=== PATIENT | female | born 2000 | race Caucasian/White ===

== ENCOUNTER 2021-10-12 16:18 | Emergency (ER) | payer OTHER, BC, SELFPAY ==
--- NOTE | 2021-10-12 16:32 | ED.WOUNDLAC ---
HPI - Wound/Laceration General Chief Complaint: Wound/Laceration Stated Complaint: WC, ring finger injury Time Seen by Provider: 10/12/21 16:32 Source: patient Mode of arrival: ambulatory Limitations: no limitations History of Present Illness HPI narrative: 21-year-old female presents with superficial laceration to right ring finger. 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 States normally she wears her gloves just happened to not put them off today. Unsure of last tetanus. States she was concerned that she may need sutures. Reports that she could not get wound to stop bleeding. Arrived with no active bleeding. Distal neurovascularly intact. All systems reviewed and negative except as noted above. Related Data Home Medications Medication Instructions Recorded Confirmed Concerta 10/12/21 Lexapro 10/12/21 Allergies Allergy/AdvReac Type Severity Reaction Status Date / Time clindamycin Allergy Unknown Verified 08/12/15 17:55 ofloxacin Allergy Unknown Verified 08/12/15 17:55 sulfamethoxazole Allergy Unknown Verified 08/12/15 17:55 trimethoprim Allergy Unknown Verified 08/12/15 17:55 AMOXICILLIN TRIHYDRATE Allergy Unknown Uncoded 08/12/15 17:55 Review of Systems Review of Systems: CONSTITUTIONAL: Denies fever, chills, or sweats. EYES: Denies visual changes, redness, or discharge. ENT: Denies rhinorrhea, congestion, sore throat, or otalgia. CARDIOVASCULAR: Denies chest pain, palpitations, or edema. RESPIRATORY: Denies cough or dyspnea. GASTROINTESTINAL: Denies abdominal pain, nausea, vomiting, or diarrhea. GENITOURINARY: Denies dysuria or hematuria. SKIN: Denies rash or itching. Reports laceration to right ring finger. MUSCULOSKELETAL: Denies back pain, joint pain, or myalgia. NEUROLOGIC: Denies headache, numbness, or weakness. PSYCHIATRIC: Denies anxiety or depression. All other systems reviewed are negative, except as documented in HPI. PMFSH Comments At time of signature, agree with nursing past medical, surgical, social and family history. There is no relevant family history pertinent to the presenting complaint. Exam Narrative: GENERAL: This is a well-nourished, well-developed patient, in no apparent distress. HEAD: normocephalic, atraumatic. EYES: PERRL. Sclera clear/white. Vision is grossly intact. EARS: External ears normal THROAT: Mucous membranes moist NECK: Neck supple, non-tender without lymphadenopathy, masses or thyromegaly. CARDIOVASCULAR: Regular rate and rhythm without murmurs, gallops, or rubs. RESPIRATORY: Clear to auscultation. Breath sounds equal bilaterally. No wheezes, rales, or rhonchi. SKIN: warm, Dry, intact with no suspicious lesions or rash, good texture and turgor. 0.5 cm superficial laceration to right ring finger. Palmar aspect to pad of finger. NEURO: awake, alert, and oriented to person, place and time. There were no obvious focal neurologic abnormalities. EXTREMITIES: No joint tenderness, effusion, or edema noted. Course Course Level of Care: Express Care Visit Vital Signs Vital signs: Vital Signs Temperature 37.1 C 10/12/21 16:36 Pulse Rate 88 10/12/21 16:36 Respiratory Rate 16 10/12/21 16:36 Blood Pressure 138/97 H 10/12/21 16:36 Pulse Oximetry 100 10/12/21 16:36 Temperature 37.1 C 10/12/21 16:36 Pulse Rate 88 10/12/21 16:36 Respiratory Rate 16 10/12/21 16:36 Blood Pressure 138/97 H 10/12/21 16:36 Pulse Oximetry 100 10/12/21 16:36 reviewed MDM - Wound/Laceration MDM Narrative Medical decision making narrative: superficial laceration R ring finger. suture repair not indicated. no active bleeding at discharge. Patient is aware of diagnosis, understands and agrees to treatment plan. Anticipatory guidance given. Patient agrees to follow-up as directed and is aware of reasons to seek care at the emergency department. Portions of this record may have been c
[2021-10-12 16:36] VITALS: BP 138/97; PULSE 88; RESP 16; TEMP 37.1; O2SAT 100
[2021-10-12] MEDS: TETANUS,DIPHTHERIA,AC PERTUSSIS ADULT (0.5 ML) BOOSTRIX IM (16:55)
== END 2021-10-12 17:04 | disposition home or self-care (01) ==
PROVIDERS: Emergency Provider Nurse Practitioner Family
DX: S61.210A Laceration without foreign body of right index finger without damage to nail, initial encounter (principal); W45.8XXA Other foreign body or object entering through skin, initial encounter; Y99.0 Civilian activity done for income or pay; Z23 Encounter for immunization
CPT/HCPCS: 90471; 90715; 99212; G0463

== ENCOUNTER 2023-03-03 19:36 | Emergency (ER) | payer BC, SELFPAY ==
--- NOTE | 2023-03-03 19:37 | ED.URI ---
HPI - URI/Sore Throat General Chief Complaint: Upper Respiratory Infection Stated Complaint: FEVER/SINUS DRAINAGE/HEADACHE Time Seen by Provider: 03/03/23 19:36 Source: patient Mode of arrival: ambulatory Limitations: no limitations History of Present Illness HPI Narrative: Abby is a 22-year-old female patient presenting to the clinic today with complaints of fever, headache, sore throat, sinus drainage, and headache x1 day. She reports her fever has gotten worse throughout the day and is high as 101. Temperature in the clinic was 99.5F. Took an at home COVID test and was negative. MD elicited complaint: fever, sore throat, nasal congestion and other (Headache, sinus drainage) Related Data Home Medications Medication Instructions Recorded Confirmed bupropion HCl 300 mg 24 hr tablet, 300 mg PO DAILY 03/03/23 03/03/23 extended release escitalopram oxalate 20 mg tablet 20 mg PO DAILY 03/03/23 03/03/23 methylphenidate HCl 36 mg 36 mg PO DAILY 03/03/23 03/03/23 tablet,extended release 24 hr norethindrone 1 mg-ethinyl 1 tablet PO DAILY 03/03/23 03/03/23 estradiol 10 mcg (24)-iron 10 mcg(2) tablet (Lo Loestrin Fe) Allergies Allergy/AdvReac Type Severity Reaction Status Date / Time clindamycin Allergy Unknown Hives Verified 03/03/23 19:38 ofloxacin Allergy Unknown Other Verified 03/03/23 19:38 sulfamethoxazole Allergy Unknown Hives Verified 03/03/23 19:38 trimethoprim Allergy Unknown Hives Verified 03/03/23 19:38 AMOXICILLIN TRIHYDRATE Allergy Unknown Hives Uncoded 03/03/23 19:38 Review of Systems Review of Systems: Pertinent positives per HPI. Patient denies any rash, visual changes, dizziness, shortness of breath, chest pain, palpitations, nausea, vomiting, diarrhea, constipation, abdominal pain, or any urinary issues. PMFSH Comments At the time of my signature, I reviewed and agree with the nursing past medical, surgical, social, and family history. There is no relevant family history pertinent to the patient complaint. Exam Narrative: General: Well-developed, well nourished, in no apparent distress Head: Normocephalic, atraumatic Eyes: Pupils equally round and reactive to light bilaterally, EOM intact, sclera and conjunctive clear, no discharge, lids normal Ears: TMs intact and clear, ear canals clear, no drainage, grossly hearing normal. Nose: Nares patent, clear nasal discharge, no inflammation, no sinus tenderness. Mouth: Oral pharynx red without lesions or masses, good dentition, MMM. Neck: Supple, trachea midline, enlargement of anterior cervical nodes, no thyroid masses or goiter palpable. Cardio: Regular rate and rhythm, s1 and s2 normal, no murmur appreciated. Resp: Clear to auscultation bilaterally, no rhonchi, rales, wheezing or rubs Course Course Emergency Course: Portions of this record may have been created with voice recognition software. Level of Care: Express Care Visit Vital Signs Vital signs: Vital signs reviewed MDM - URI/Sore Throat MDM Narrative Medical decision making narrative: At the time of visit patient is resting comfortably on the exam table. Patient appears to be nontoxic. Strep and flu test were performed. Strep test was positive. Influenza testing was negative. Prescription for cefdinir was sent to the pharmacy. Supportive measures were discussed with the patient and they voiced understanding discharge instructions and agrees to treatment plan. Return precautions reviewed Differential Diagnosis Differential diagnosis: Likely upper respiratory infection, otitis media, sinusitis, viral infection, bronchitis, influenza, pharyngitis and other (COVID) Discharge Plan Discharge Clinical Impression: Acute streptococcal pharyngitis Upper respiratory infection Qualifiers: URI type: unspecified URI Qualified Code(s): J06.9 - Acute upper respiratory infection, unspecified Patient Disposition: Home, Self-Care Condition: Stable Instructions:
[2023-03-03 19:41] VITALS: BP 142/82; PULSE 98; RESP 16; TEMP 37.4; O2SAT 99
[2023-03-03 19:46] VITALS: BP 142/82; PULSE 98; RESP 16; TEMP 37.4; O2SAT 99
== END 2023-03-03 19:58 | disposition home or self-care (01) ==
PROVIDERS: Emergency Provider Nurse Practitioner Family
DX: J02.0 Streptococcal pharyngitis (principal)
CPT/HCPCS: 87804; 87880; 99213; G0463

== ENCOUNTER 2023-07-25 14:31 | Emergency (ER) | payer BC, SELFPAY ==
[2023-07-25 14:43] VITALS: BP 133/98; PULSE 133; RESP 16; TEMP 36.6; O2SAT 100
[2023-07-25 14:45] VITALS: BP 133/98; PULSE 133; RESP 16; TEMP 36.6; O2SAT 100
--- NOTE | 2023-07-25 15:07 | ED.SKABFB ---
HPI - Skin/Abscess/Foreign Bdy General Chief complaint: Skin/Abscess/Foreign Body Stated complaint: L ARM BURN Time Seen by Provider: 07/25/23 15:07 Source: patient and RN notes reviewed Mode of arrival: ambulatory Limitations: no limitations History of Present Illness HPI narrative: 22-year-old female presents concern for burn to his air left arm. She reports prior to arrival she burned the arm on a curling want. She reports blistering. She denies intervention. MD complaint: other (burn) Related Data Home Medications Medication Instructions Recorded Confirmed bupropion HCl 300 mg 24 hr tablet, 300 mg PO DAILY 03/03/23 07/25/23 extended release escitalopram oxalate 20 mg tablet 20 mg PO DAILY 03/03/23 07/25/23 methylphenidate HCl 36 mg 36 mg PO DAILY 03/03/23 07/25/23 tablet,extended release 24 hr norethindrone 1 mg-ethinyl 1 tablet PO DAILY 03/03/23 07/25/23 estradiol 10 mcg (24)-iron 10 mcg(2) tablet (Lo Loestrin Fe) Allergies Allergy/AdvReac Type Severity Reaction Status Date / Time clindamycin Allergy Unknown Hives Verified 07/25/23 14:42 ofloxacin Allergy Unknown Other Verified 07/25/23 14:42 sulfamethoxazole Allergy Unknown Hives Verified 07/25/23 14:42 trimethoprim Allergy Unknown Hives Verified 07/25/23 14:42 AMOXICILLIN TRIHYDRATE Allergy Unknown Hives Uncoded 07/25/23 14:42 Review of Systems Review of Systems: CONSTITUTIONAL: Denies malaise, chills, sweats, or fever. EYES: Denies redness, or discharge. ENT: Denies rhinorrhea, congestion, swollen lips, swollen tongue CARDIOVASCULAR: Denies chest pain, palpitations, or edema. RESPIRATORY: Denies cough or dyspnea. GASTROINTESTINAL: Denies abdominal pain, nausea, vomiting SKIN: Reports burn to the left arm MUSCULOSKELETAL: Denies joint pain or myalgia. NEUROLOGIC: Denies headache. All systems reviewed & are unremarkable except as noted in HPI and below PMFSH Comments At time of signature, agree with nursing past medical, surgical, social and family history. There is no relevant family history pertinent to the presenting complaint Exam Narrative: GENERAL: Well-appearing, well-nourished, and in no acute distress. HEAD: Normocephalic, atraumatic. EYES: PERRLA, conjunctivae clear, and EOMI. ENT: Mucous membranes moist. Oropharynx without edema, erythema or lesions. NECK: Supple. No lymphadenopathy CHEST: Clear to auscultation. No respiratory distress. HEART: Regular rate and rhythm. SKIN: Warm, dry. Approximately 4 cm x 1 cm second-degree burn noted to the left inner arm a with approximately 0.5 x 1.5 cm intact blister with clear fluid NEURO: Alert and oriented x3. PSYCH: Normal mood and affect Course Course Emergency Course: Patient is aware of diagnosis, understands and agrees to treatment plan. Anticipatory guidance given. Patient agrees to follow-up as directed and is aware of reasons to seek care at the emergency department. Portions of this record may have been created with voice recognition software Level of Care: Express Care Visit Vital Signs Vital signs: Vital Signs Temperature 97.9 F 07/25/23 14:43 Pulse Rate 133 H 07/25/23 14:43 Respiratory Rate 16 07/25/23 14:43 Blood Pressure 133/98 H 07/25/23 14:43 Pulse Oximetry 100 07/25/23 14:43 Temperature 97.9 F 07/25/23 14:45 Pulse Rate 133 H 07/25/23 14:45 Respiratory Rate 16 07/25/23 14:45 Blood Pressure 133/98 H 07/25/23 14:45 Pulse Oximetry 100 07/25/23 14:45 Reviewed. MDM - Skin/Abscess/Foreign Bdy MDM Narrative Medical decision making narrative: I evaluated this patient in the city hospital care. History is obtained from patient who is an independent historian and physical exam was performed.? Available medical records were reviewed. ? Exam findings and relevant testing show no acute concerns or changes; patient is non-toxic appearing and is in no distress. ? Differential diagnosis and treatment plan were discussed with the elsi
== END 2023-07-25 15:22 | disposition home or self-care (01) ==
PROVIDERS: Emergency Provider Nurse Practitioner
DX: T22.20XA Burn of second degree of shoulder and upper limb, except wrist and hand, unspecified site, initial encounter (principal); X08.8XXA Exposure to other specified smoke, fire and flames, initial encounter; J45.990 Exercise induced bronchospasm; F32.A Depression, unspecified; F98.8 Other specified behavioral and emotional disorders with onset usually occurring in childhood and adolescence
CPT/HCPCS: 99213; G0463

== ENCOUNTER 2023-09-24 09:56 | Emergency (ER) | payer BC, SELFPAY ==
[2023-09-24 10:31] VITALS: BP 117/85; PULSE 81; RESP 16; TEMP 36.7; O2SAT 100
--- NOTE | 2023-09-24 10:39 | ED.SKABFB ---
HPI - Skin/Abscess/Foreign Bdy General Chief complaint: Extremity Problem,Nontraumatic Stated complaint: BOTH HANDS SWELLING Time Seen by Provider: 09/24/23 10:40 Source: patient and RN notes reviewed Mode of arrival: ambulatory Limitations: no limitations History of Present Illness HPI narrative: 23-year-old female presents concern for bilateral hand swelling, redness, tenderness, warmth on the palmar aspect. Reports symptoms started yesterday. She denies any history of allergies. She took Benadryl without much improvement. She denies lip swelling, tongue swelling, trouble breathing, rash. She denies itching. She reports she did handle sweet corn from a farm yesterday, she was not sure if it was passed decided on or not. She denies any injury or trauma. She denies fever, body aches, chills, sweats. She denies open skin. MD complaint: other (swelling) Related Data Home Medications Medication Instructions Recorded Confirmed bupropion HCl 300 mg 24 hr tablet, 300 mg PO DAILY 03/03/23 09/24/23 extended release methylphenidate HCl 36 mg 36 mg PO DAILY 03/03/23 09/24/23 tablet,extended release 24 hr norethindrone 1 mg-ethinyl 1 tablet PO DAILY 03/03/23 09/24/23 estradiol 10 mcg (24)-iron 10 mcg(2) tablet (Lo Loestrin Fe) escitalopram oxalate 5 mg tablet 5 mg PO DAILY 09/24/23 09/24/23 levothyroxine 25 mcg tablet 25 mcg PO DAILY 09/24/23 09/24/23 Allergies Allergy/AdvReac Type Severity Reaction Status Date / Time clindamycin Allergy Unknown Hives Verified 09/24/23 10:24 ofloxacin Allergy Unknown Other Verified 09/24/23 10:24 sulfamethoxazole Allergy Unknown Hives Verified 09/24/23 10:24 trimethoprim Allergy Unknown Hives Verified 09/24/23 10:24 AMOXICILLIN TRIHYDRATE Allergy Unknown Hives Uncoded 09/24/23 10:24 Review of Systems Review of Systems: CONSTITUTIONAL: Denies malaise, chills, sweats, or fever. EYES: Denies redness, or discharge. ENT: Denies rhinorrhea, congestion, swollen lips, swollen tongue CARDIOVASCULAR: Denies chest pain, palpitations, or edema. RESPIRATORY: Denies cough or dyspnea. GASTROINTESTINAL: Denies abdominal pain, nausea, vomiting SKIN: Reports bilateral palmar hand swelling, redness, warmth, tingling in the thumbs MUSCULOSKELETAL: Denies joint pain or myalgia. NEUROLOGIC: Denies headache. All systems reviewed & are unremarkable except as noted in HPI and below PMFSH Comments At time of signature, agree with nursing past medical, surgical, social and family history. There is no relevant family history pertinent to the presenting complaint Exam Narrative: GENERAL: Well-appearing, well-nourished, and in no acute distress. HEAD: Normocephalic, atraumatic. EYES: PERRLA, conjunctivae clear, and EOMI. ENT: Mucous membranes moist. Oropharynx without edema, erythema or lesions. NECK: Supple. No lymphadenopathy CHEST: Clear to auscultation. No respiratory distress. HEART: Regular rate and rhythm. SKIN: Warm, dry. Bilateral pulmonary aspect of the hands have mild edema, warmth, erythema particularly at the tips of the fingers on the palmar aspect. No open skin noted, no induration noted, no rash noted NEURO: Alert and oriented x3. PSYCH: Normal mood and affect Course Course Emergency Course: Patient is aware of diagnosis, understands and agrees to treatment plan. Anticipatory guidance given. Patient agrees to follow-up as directed and is aware of reasons to seek care at the emergency department. Portions of this record may have been created with voice recognition software Level of Care: Express Care Visit Vital Signs Vital signs: Vital Signs Temperature 98.1 F 09/24/23 10:31 Pulse Rate 81 09/24/23 10:31 Respiratory Rate 16 09/24/23 10:31 Blood Pressure 117/85 09/24/23 10:31 Pulse Oximetry 100 09/24/23 10:31 Temperature 98.1 F 09/24/23 10:31 Pulse Rate 81 09/24/23 10:31 Respiratory Rate 16 09/24/23 10:31 Blood Pressure 117/85 09/23
== END 2023-09-24 10:54 | disposition home or self-care (01) ==
PROVIDERS: Emergency Provider Nurse Practitioner
DX: R22.33 Localized swelling, mass and lump, upper limb, bilateral (principal); J45.990 Exercise induced bronchospasm; F98.8 Other specified behavioral and emotional disorders with onset usually occurring in childhood and adolescence; F32.A Depression, unspecified
CPT/HCPCS: 99213; G0463